=== PATIENT | female | born 1970 | race Caucasian/White ===

== ENCOUNTER 2019-02-22 17:48 | Emergency (ER) | payer BC ==
[~2019-02-22] VITALS: Ht 165.1 cm; Wt 159.1 kg
[2019-02-22 18:01] VITALS: BP 139/70
[2019-02-22] MEDS ORDERED: BACTRIM DS 8001 TAB PO (18:16)
[2019-02-22] MEDS ORDERED: NORCO 325 MG-51 TAB PO ×2 (18:17→18:32)
[2019-02-22] MEDS ORDERED: SEPTRA DS 8001 TAB PO (18:32)
[2019-02-22 21:05] VITALS: PULSE 83; TEMP 101.2
== END 2019-02-22 21:03 | disposition home or self-care (01) ==
LOC: COL.ER 17:48
DX: L02.11 Cutaneous abscess of neck (principal)
CPT/HCPCS: J0780; J1170

== ENCOUNTER 2020-09-03 12:38 | Inpatient (IN) | payer BC ==
[~2020-09-03] VITALS: Ht 162.6 cm; Wt 159.0 kg
[~2020-09-03 12:38] MED LIST: BACTRIM DS 8001 TAB PO; CLEOCIN HCL300 MG PO; NORCO 325 MG-51 TAB PO; SEPTRA DS 8001 TAB PO
[2020-09-17] VITALS (10 sets, daily range): BP systolic 117–180; BP diastolic 64–89; PULSE 81–108; TEMP 97.6–98.1
[2020-09-17] MEDS ORDERED: NATURAL IRON65 MG PO (11:46)
[2020-09-17] MEDS ORDERED: ZOLOFT 50MG50 MG PO (11:47)
[2020-09-18] VITALS: BP 122/66; PULSE 91; TEMP 97.8
[2020-09-18 04:00] VITALS: BP 142/66; PULSE 81; TEMP 97.8
[2020-09-18 08:15] VITALS: BP 123/66; PULSE 87; TEMP 98
[2020-09-18 08:26] LABS: CALCIUM 8.8 mg/dL (8.4-10.2); CREATININE, serum 0.83 (0.52-1.25); POTASSIUM 4.4 mmol/L (3.4-5.0)
[2020-09-18 08:29] LABS: BASO % 0.2 % (0.0-2.0); GRAN # 9.7 (1.4-6.5); GRAN % 82.3 % (42.2-75.2); HEMATOCRIT 40.6 % (37.0-47.0); HEMOGLOBIN 11.7 g/dl (12.5-16.0); LYMPH # 1.1 (1.2-3.4); LYMPH % 9.7 % (20.0-51.0); MEAN CELL VOLUME 76 fl (80.0-100.0); MEAN CORPUSCULAR HEMOGLOBIN 22 pg (27.0-31.0); MEAN CORPUSCULAR HGB CONC 29 g/dl (33.0-37.0); MEAN PLATELET VOLUME 9.8 fl (7.4-10.4); MONO # 0.9 (0.1-0.6); MONO % 7.3 % (1.7-9.3); PLATELET COUNT 305 K/mm3 (130-400); RED BLOOD COUNT 5.37 M/mm3 (4.10-5.30); REDCELL DISTRIBUTION WIDTH-CV 26.5 % (11.5-14.5)
[2020-09-18 12:03] VITALS: BP 123/65; PULSE 84; TEMP 98.2
[2020-09-18 15:53] VITALS: BP 139/60; PULSE 62; TEMP 98
[2020-09-18 19:51] VITALS: BP 137/52; PULSE 67; TEMP 98
[2020-09-19 03:43] VITALS: BP 134/66; PULSE 84; TEMP 98.6
[2020-09-19 06:56] LABS: BASO % 0.5 % (0.0-2.0); EOS # 0.1 (0.0-0.7); EOS % 1.6 % (0-4.0); GRAN # 4.9 (1.4-6.5); GRAN % 63.3 % (42.2-75.2); HEMATOCRIT 38.7 % (37.0-47.0); HEMOGLOBIN 10.9 g/dl (12.5-16.0); LYMPH % 25.5 % (20.0-51.0); MEAN CELL VOLUME 77 fl (80.0-100.0); MEAN CORPUSCULAR HEMOGLOBIN 22 pg (27.0-31.0); MEAN CORPUSCULAR HGB CONC 28 g/dl (33.0-37.0); MEAN PLATELET VOLUME 9.5 fl (7.4-10.4); MONO # 0.7 (0.1-0.6); MONO % 8.6 % (1.7-9.3); PLATELET COUNT 261 K/mm3 (130-400); REDCELL DISTRIBUTION WIDTH-CV 26.5 % (11.5-14.5)
[2020-09-19 07:04] LABS: CALCIUM 8.7 mg/dL (8.4-10.2); CREATININE, serum 0.81 (0.52-1.25); POTASSIUM 4.2 mmol/L (3.4-5.0)
[2020-09-19 07:37] VITALS: BP 115/62; PULSE 72; TEMP 97.9
[2020-09-19 11:18] VITALS: BP 160/88; PULSE 93; TEMP 97.8
[2020-09-19 16:01] VITALS: BP 123/61; PULSE 70; TEMP 98.4
[2020-09-19 20:00] VITALS: BP 127/51; PULSE 61; TEMP 99
[2020-09-19 23:52] VITALS: BP 148/56; PULSE 87; TEMP 97.7
[2020-09-20 04:07] VITALS: BP 119/52; PULSE 78; TEMP 98
[2020-09-20 07:34] VITALS: BP 149/74; PULSE 69; TEMP 97.7
[2020-09-20 11:40] VITALS: BP 145/63; PULSE 65; TEMP 97.7
[2020-09-20] MEDS ORDERED: ULTRAM 50MG TAB50 MG PO (13:10)
== END 2020-09-20 14:50 | disposition home or self-care (01) | DRG 330 ==
LOC: OR 09-17 10:41 → SURG 09-17 12:30
PROVIDERS: ADMIT Surgery
PROC: 0DBN4ZZ Excision of Sigmoid Colon, Percutaneous Endoscopic Approach (ICD-10-PCS; principal; 2020-09-17 12:30)
DX: C19 Malignant neoplasm of rectosigmoid junction (principal); Z68.44 Body mass index [BMI] 60.0-69.9, adult; E66.01 Morbid (severe) obesity due to excess calories; Z90.710 Acquired absence of both cervix and uterus
CPT/HCPCS: A4314; A9284; J0330; J0690; J1100; J1170; J1650; J1885; J2405; J2550; J2704; J3010; J7120